=== PATIENT | female | born 1950 | race Caucasian/White ===

== ENCOUNTER 2019-01-01 09:15 | Emergency (ER) | payer MEDICARE, OTHER ==
[2019-01-01] MEDS ORDERED: SODIUM CHLORIDE 0.9% 1,000 ML IV STA ×3 (09:20→11:03)
--- NOTE | 2019-01-01 09:24 | ED ---
General Adult HPI - General Stated complaint: fall Time Seen by Provider: 01/01/19 09:15 Source: patient, EMS, RN notes reviewed Mode of arrival: EMS - History of Present Illness Initial comments: This is a 68-year-old female with history of schizophrenia who does live in an [facility] home that has been experiencing flu symptoms for the past week who had the onset about 24 hours ago cough generalized body aches rhinorrhea nausea no definite fevers or chills. 2. He became profoundly weak last night from not eating or drinking she slid off her bed hitting the mid back on the metal part of the bed. She was too weak he also floor lay there for several hours before being found. She was incontinent of urine. She denies any head neck pain she complains of mid thoracic pain no loss of function to her upper or lower extremities. She was brought in by EMS. No other modifying factors - Related Data Home Medications Medication Instructions Recorded Confirmed Aspirin EC [Ecotrin] 325 mg PO DAILY 01/01/19 01/01/19 Calcium Carbonate/Vitamin D3 1 tab PO DAILY 01/01/19 01/01/19 [Calcium 500-Vit D3 200 Tablet] Calcium Polycarbophil [Fiber-Lax] 625 mg PO DAILY 01/01/19 01/01/19 Celecoxib [CeleBREX] 200 mg PO DAILY 01/01/19 01/01/19 Divalproex ER [Depakote ER] 1,000 mg PO HS 01/01/19 01/01/19 Famotidine [Pepcid] 40 mg PO DAILY 01/01/19 01/01/19 Haloperidol Con 2mg/Ml 2 mg PO BID 01/01/19 01/01/19 Ipratropium-Albuterol Nebulize 3 ml INHALATION RT-QID 01/01/19 01/01/19 [Duoneb 0.5 mg-3 mg/3 ml Soln] Multivitamins, Thera [Multivitamin 1 tab PO DAILY 01/01/19 01/01/19 (formulary)] Simvastatin [Zocor] 40 mg PO HS 01/01/19 01/01/19 cloZAPine [Clozaril] 25 mg PO HS 01/01/19 01/01/19 cloZAPine [Clozaril] 200 mg PO HS 01/01/19 01/01/19 Previous Rx's Medication Instructions Recorded Oseltamivir [Tamiflu] 75 mg PO Q12HR #10 cap 01/01/19 Allergies Allergy/AdvReac Type Severity Reaction Status Date / Time Penicillins Allergy Unknown Verified 01/01/19 09:43 Review of Systems ROS Statement: Those systems with pertinent positive or pertinent negative responses have been documented in the HPI. ROS Other: All systems not noted in ROS Statement are negative. General Exam - General Exam Comments Initial Comments: this a well-developed well-nourished awake alert though somewhat lethargic female General appearance: alert, lethargic Head exam: Present: atraumatic, normocephalic, normal inspection Eye exam: Present: normal appearance, PERRL, EOMI. Absent: scleral icterus, conjunctival injection, periorbital swelling ENT exam: Present: mucous membranes dry, other (Boggy swollen nasal mucosa TMs are within normal limits) Neck exam: Present: normal inspection. Absent: tenderness, meningismus, lym phadenopathy Respiratory exam: Present: normal lung sounds bilaterally, chest wall tenderness (Some tenderness palpation of the mid thoracic back no evidence of any bruising step-off crepitation or open wounds.). Absent: respiratory distress, wheezes, rales, rhonchi, stridor Cardiovascular Exam: Present: regular rate, normal rhythm, normal heart sounds. Absent: systolic murmur, diastolic murmur, rubs, gallop, clicks GI/Abdominal exam: Present: soft, normal bowel sounds. Absent: distended, tenderness, guarding, rebound, rigid Extremities exam: Present: normal inspection, full ROM, normal capillary refill. Absent: tenderness, pedal edema, joint swelling, calf tenderness Back exam: Present: normal inspection Neurological exam: Present: alert, oriented X3, CN II-XII intact Psychiatric exam: Present: normal mood, flat affect Skin exam: Present: warm, dry, intact, normal color. Absent: rash Course Vital Signs 01/01/19 01/01/19 09:20 09:34 Temperature 97.9 F Pulse Rate 96 Respiratory 20 16 Rate Blood Pressure 122/66 O2 Sat by Pulse 95 Oximetry EKG Findings - EKG Results: EKG: interpreted by [email or web address] (Sinus tachycardia rate 105. We'll 140 QRS duration 80 QT since QTC 362/478 possible left atrial enlargement nonspecific ST-T wave configuration.) Medical Decision Making - Medical Decision Making Patient was improved after IV hydration she is flu type B positive. She is able move well after IV hydration she'll be discharged back to her facility. - Lab Data Result diagrams: 01/01/19 09:37 01/01/19 09:37 Lab Results 01/01/19 01/01/19 01/01/19 Range/Units 09:37 09:37 09:37 WBC 7.7 (3.8-10.6) k/uL RBC 4.28 (3.80-5.40) m/uL Hgb 12.9 (11.4-16.0) gm/dL Hct 39.1 (34.0-46.0) % MCV 91.3 (80.0-100.0) fL MCH 30.1 (25.0-35.0) pg MCHC 32.9 (31.0-37.0) g/dL RDW 12.8 (11.5-15.5) % Plt Count 120 L (150-450) k/uL Neutrophils % 72 % Lymphocytes % 11 % Monocytes % 15 % Eosinophils % 0 % Basophils % 0 % Neutrophils # 5.5 (1.3-7.7) k/uL Lymphocytes # 0.8 L (1.0-4.8) k/uL Monocytes # 1.1 H (0-1.0) k/uL Eosinophils # 0.0 (0-0.7) k/uL Basophils # 0.0 (0-0.2) k/uL Sodium 137 (137-145) mmol/L Potassium 3.8 (3.5-5.1) mmol/L Chloride 103 (98-107) mmol/L Carbon Dioxide 25 (22-30) mmol/L Anion Gap 9 mmol/L BUN 25 H (7-17) mg/dL Creatinine 0.80 (0.52-1.04) mg/dL Est GFR (CKD-EPI)AfAm 88 (>60 ml/min/1.73 sqM) Est GFR (CKD-EPI)NonAf 76 (>60 ml/min/1.73 sqM) Glucose 98 (74-99) mg/dL Plasma Lactic Acid Jere (0.7-2.0) mmol/L Calcium 8.7 (8.4-10.2) mg/dL Magnesium 2.1 (1.6-2.3) mg/dL Total Bilirubin 0.5 (0.2-1.3) mg/dL AST 28 (14-36) U/L ALT 21 (9-52) U/L Alkaline Phosphatase 59 (38-126) U/L Total Creatine Kinase 463 H (30-135) U/L CK-MB (CK-2) 2.1 (0.0-2.4) ng/mL CK-MB (CK-2) Rel Index 0.5 Troponin I <0.012 (0.000-0.034) ng/mL Total Protein 6.2 L (6.3-8.2) g/dL Albumin 3.4 L (3.5-5.0) g/dL Valproic Acid 103.2 ug/mL Influenza Type A RNA (Not Detectd) Influenza Type B (PCR) (Not Detectd) 01/01/19 01/01/19 Range/Units 09:37 09:37 WBC (3.8-10.6) k/uL RBC (3.80-5.40) m/uL Hgb (11.4-16.0) gm/dL Hct (34.0-46.0) % MCV (80.0-100.0) fL MCH (25.0-35.0) pg MCHC (31.0-37.0) g/dL RDW (11.5-15.5) % Plt Count (150-450) k/uL Neutrophils % % Lymphocytes % % Monocytes % % Eosinophils % % Basophils % % Neutrophils # (1.3-7.7) k/uL Lymphocytes # (1.0-4.8) k/uL Monocytes # (0-1.0) k/uL Eosinophils # (0-0.7) k/uL Basophils # (0-0.2) k/uL Sodium (137-145) mmol/L Potassium (3.5-5.1) mmol/L Chloride (98-107) mmol/L Carbon Dioxide (22-30) mmol/L Anion Gap mmol/L BUN (7-17) mg/dL Creatinine (0.52-1.04) mg/dL Est GFR (CKD-EPI)AfAm (>60 ml/min/1.73 sqM) Est GFR (CKD-EPI)NonAf (>60 ml/min/1.73 sqM) Glucose (74-99) mg/dL Plasma Lactic Acid Jere 0.9 (0.7-2.0) mmol/L Calcium (8.4-10.2) mg/dL Magnesium (1.6-2.3) mg/dL Total Bilirubin (0.2-1.3) mg/dL AST (14-36) U/L ALT (9-52) U/L Alkaline Phosphatase (38-126) U/L Total Creatine Kinase (30-135) U/L CK-MB (CK-2) (0.0-2.4) ng/mL CK-MB (CK-2) Rel Index Troponin I (0.000-0.034) ng/mL Total Protein (6.3-8.2) g/dL Albumin (3.5-5.0) g/dL Valproic Acid ug/mL Influenza Type A RNA Not Detected (Not Detectd) Influenza Type B (PCR) Detected H (Not Detectd) - Radiology Data Radiology results: report reviewed, image reviewed (Imaging was reviewed no definite infiltrates evidence of some bronchitis.) Disposition Clinical Impression: Influenza B, Dehydration, History of schizophrenia Disposition: HOME SELF-CARE Condition: Good Instructions (If sedation given, give patient instructions): Influenza (ED), Dehydration (ED) Prescriptions: Oseltamivir [Tamiflu] 75 mg PO Q12HR #10 cap Is patient prescribed a controlled substance at d/c from ED?: No Referrals: Elsy Lee MD [Primary Care Provider] - 1-2 days
[2019-01-01 09:37] VITALS: RESP 16
[2019-01-01 09:54] LABS: Basophils % (A) 0 %; Eosinophils % (A) 0 %; HCT 39.1 % (34.0-46.0); HGB 12.9 gm/dL (11.4-16.0); Lymphocytes # (A) 0.8 k/uL (1.0-4.8); Lymphocytes % (A) 11 %; MCH 30.1 pg (25.0-35.0); MCHC 32.9 g/dL (31.0-37.0); MCV 91.3 fL (80.0-100.0); Mean Platelet Volume 8.3; Monocytes # (A) 1.1 k/uL (0-1.0); Monocytes % (A) 15 %; Neutrophils # (A) 5.5 k/uL (1.3-7.7); Neutrophils % (A) 72 %; Platelet Count 120 k/uL (150-450); RBC 4.28 m/uL (3.80-5.40); RDW 12.8 % (11.5-15.5); WBC 7.7 k/uL (3.8-10.6)
[2019-01-01 10:04] LABS: Albumin 3.4 g/dL (3.5-5.0); Calcium 8.7 mg/dL (8.4-10.2); Magnesium 2.1 mg/dL (1.6-2.3); Potassium 3.8 mmol/L (3.5-5.1); Total Bilirubin 0.5 mg/dL (0.2-1.3); Total Protein 6.2 g/dL (6.3-8.2)
[2019-01-01 10:10] LABS: Valproic Acid (Depakene) 103.2 ug/mL
--- NOTE | 2019-01-01 10:20 | XR ---
EXAMINATION TYPE: XR chest 2V DATE OF EXAM: 01/01/2019 COMPARISON: Prior chest x-ray 10/22/2011 HISTORY: Cough TECHNIQUE: Frontal and lateral views of the chest are obtained. FINDINGS: There is no focal air space opacity, pleural effusion, or pneumothorax seen. The cardiac silhouette size is within normal limits. Prominent lung volumes are noted. The osseous structures a re intact. There are overlying artifacts, leads. There is bronchial wall thickening. IMPRESSION: Correlate for bronchitis, reactive airways disease.
[2019-01-01 10:30] LABS: Creatine Kinase 463 U/L (30-135)
[2019-01-01 10:42] LABS: Creatine Kinase MB 2.1 ng/mL (0.0-2.4); Troponin I <0.012 ng/mL (0.000-0.034)
[2019-01-01] MEDS ORDERED: OSELTAMIVIR 75 MG CAP PO STA (11:03)
[2019-01-01 13:23] VITALS: BP 124/65; PULSE 90; TEMP 98.1
== END 2019-01-01 18:17 | disposition home or self-care (01) ==
LOC: EC 09:15
DX: E86.0 Dehydration (principal); J10.1 Influenza due to other identified influenza virus with other respiratory manifestations; F20.9 Schizophrenia, unspecified; R53.1 Weakness; R32 Unspecified urinary incontinence; Z88.0 Allergy status to penicillin; Z79.1 Long term (current) use of non-steroidal anti-inflammatories (NSAID); Z79.82 Long term (current) use of aspirin; Z79.899 Other long term (current) drug therapy; W06.XXXA Fall from bed, initial encounter; Y93.89 Activity, other specified; Y92.099 Unspecified place in other non-institutional residence as the place of occurrence of the external cause
CPT/HCPCS: 36415; 71046; 80053; 80164; 82550; 82553; 83605; 83735; 84484; 85025; 87502; 93005; 96360; 96361; 99284